=== PATIENT | male | born 2005 | race Caucasian/White ===

== ENCOUNTER 2025-05-05 08:09 | Outpatient (CLI) | payer OTHER, SELFPAY | END 2025-05-05 08:10 | disposition home or self-care (01) | LOC: LKVREF 08:10 | PROVIDERS: PCP Family Medicine; Visit Provider Family Medicine | DX: D70.9 Neutropenia, unspecified (principal); F41.9 Anxiety disorder, unspecified; R53.83 Other fatigue; Z13.6 Encounter for screening for cardiovascular disorders | CPT/HCPCS: 80048; 80061; 84443 ==

== ENCOUNTER 2025-07-11 07:54 | Outpatient (CLI) | payer OTHER, SELFPAY ==
[2025-07-11 14:09] LABS: Albumin* 4.5 g/dL (3.3-5.0)
[2025-07-11 14:11] LABS: Alanine Aminotransferase* 15 U/L (4-50); Aspartate Amino Transferase* 24 U/L (12-35); Total Protein* 6.9 g/dL (6.0-8.3)
[2025-07-11 14:12] LABS: Alkaline Phosphatase* 67 U/L (40-150); Bilirubin Direct* 0.5 mg/dL (0.0-0.5); Bilirubin Total* 0.9 mg/dL (0.1-1.5)
== END 2025-07-11 07:55 | disposition home or self-care (01) ==
LOC: NPINS 07:55
PROVIDERS: PCP Family Medicine; Visit Provider Physician Assistant
DX: Z79.899 Other long term (current) drug therapy (principal)
CPT/HCPCS: 80076